=== PATIENT | female | born 1950 | race Caucasian/White ===

== ENCOUNTER → 2019-01-23 | Outpatient (CLI) | payer OTHER ==
--- NOTE | 2019-01-22 15:21 | PCVCIMAG ---
APPROVED REPORT Study performed: 01/22/2019 09:17:22 EXAM: Comprehensive 2D, Doppler, and color-flow Echocardiogram Patient Location: Echo lab Status: routine BSA: 1.96 HR: 70 bpmBP: 128/78 mmHg Rhythm: NSR Other Information Study Quality: Good Risk Factors: Cardiac Risk Factors: HTN, Hyperlipidemia Indications Pre-Op CAD 2D Dimensions IVSd: 8.90 (7-11mm)LVOT Diam: 20.00 (18-24mm) LVDd: 42.40 mm PWd: 9.44 (7-11mm)Ascending Ao: 29.18 (22-36mm) LVDs: 29.11 (25-40mm) Left Atrium: 32.44 (27-40mm) Aortic Root: 29.93 mm LV Single Plane 4CH: 63.97 % LV Single Plane 2CH: 67.77 % Biplane EF: 66.4 % Volumes Left Atrial Volume (Systole) Single Plane 4CH: 37.73 mLSingle Plane 2CH: 37.55 mL LA ESV Index: 21.00 mL/m2 Aortic Valve AoV Peak Ventura.: 1.31 m/s AO Peak Gr.: 6.91 mmHgLVOT Max P.12 mmHg LVOT Max V: 1.24 m/s CLARA Vmax: 2.82 cm2 AI Vmax: 4.06 m/s AI Pike: 1.31 m/s2 AI PHT: 896.42 ms Mitral Valve E/A Ratio: 0.8 MV Decel. Time: 180.11 ms MV E Max Ventura.: 1.01 m/s MV A Ventura.: 1.19 m/s MV PHT: 52.23 ms IVRT: 41.52 ms TDI E/Lateral E': 12.63E/Medial E': 14.43 Medial E' Ventura.: 0.07 m/s Lateral E' Ventura.: 0.08 m/s Pulmonary Valve PV Peak Ventura.: 0.96 m/sPV Peak Gr.: 3.70 mmHg Pulmonary Vein P Vein S: 0.65 m/sP Vein A: 0.33 m/s P Vein D: 0.53 m/sP Vein A Dur.: 107.3 msec P Vein S/D Ratio: 1.23 Tricuspid Valve TR Peak Ventura.: 2.59 m/s TR Peak Gr.: 26.76 mmHg Left Ventricle The left ventricle is normal size. There is normal LV segmental wall motion. There is normal left ventricular wall thickness. Left ventricular systolic function is normal. The left ventricular ejection fraction is within the normal range. LVEF is 60-65%. Mild diastolic dysfunction is present (impaired relaxation pattern). Right Ventricle The right ventricle is normal size. The right ventricular systolic function is normal. Atria The left atrium size is normal. The right atrium size is normal. Aortic Valve The Aortic valve is sclerotic. Mild aortic regurgitation. There is no aortic valvular stenosis. Mitral Valve The mitral valve is normal in structure. Mild mitral regurgitation. No evidence of mitral valve stenosis. Tricuspid Valve The tricuspid valve is normal in structure. Mild tricuspid regurgitation. TR jet measures 27 mmHg. Unable to assess PA pressure. Pulmonic Valve The pulmonary valve is normal in structure. There is no pulmonic valvular regurgitation. Great Vessels The aortic root is normal in size. IVC is not well visualized. Pericardium There is no pericardial effusion. <Conclusion> The left ventricle is normal size. LVEF is 60-65%. Mild diastolic dysfunction is present (impaired relaxation pattern). The right ventricle is normal size. The left atrium size is normal. The Aortic valve is sclerotic. Mild aortic regurgitation. Mild mitral regurgitation. Mild tricuspid regurgitation. TR jet measures 27 mmHg. Unable to assess PA pressure. The aortic root is normal in size. There is no pericardial effusion.
[~2019-01-23] MED LIST: REGADENOSON 0.4 MG/5 ML DISP.SYRIN. IV ONE
--- NOTE | 2019-01-23 16:09 | PCVCIMAG ---
APPROVED REPORT Imaging Protocol: Rest Tc-99m/Stress Tc-99m 1 day Study performed: 01/23/2019 13:50:48 Indication: CAD , Pre-Operative CV evaluation Patient Location: Out-Patient Stress Nurse: Nata Cruz RN, Melanie Baum RN [place] Tech:Evelyn Xavier [facility] Ht: 5 ft 5 in Wt: 195 lbs BSA: 1.96 m2 HR: 72 bpm BP: 154/85 mmHg BMI: 32.44 Medical History Medical History: HTN, Hyperlipidemia Medications: Albuterol, Amlodipine, ASA, Levothyroxine, Singulair, Crestor Allergies: Many - none relevant to this test Cardiac Risk Factors: Age Pretest Chest Pain Characteristics: No chest pain Exercise History: Indeterminate Physical Disabilities: Hips Resting Data Rest SPECT myocardial perfusion imaging was performed in supine position 45 minutes following the intravenous injection of 9.3 mCi of Tc-99m Sestamibi. Time of rest injection: 1310 Date: 01/23/2019 Administration Route: IV Administration Site: Right AC Pharmacologic Stress Pharmacologic stress test was performed by injecting Regadenoson 0.4 mg IV push over 10-15 seconds immediately followed by the intravenous injection of 34.2 mCi of Tc-99m Sestamibi. Time of stress injection: 34.2 Administration Route: IV Administration Site: Right AC Gated Stress SPECT was performed 45 minutes after stress injection. The images were gated to evaluate regional wall motion and calculate left ventricular ejection fraction. Stress Test Details Stress Test: Pharmacologic stress testing performed using 0.4 mg of regadenoson per 5 mL given IV over 10 seconds. 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 HRMax Heart Rate (APMHR): 152 bpm Resting HR: 72 bpmTarget HR (85% APMHR): 129 bpm Max HR Achieved: 93 bpm % of APMHR: 61 Recovery HR: 88 bpm BP Resting BP: 154/85 mmHg Max BP: 154/88 mmHg Recovery BP: 152/83 mmHg ECG Resting ECG: Normal Sinus Rhythm Stress ECG: Normal Sinus Rhythm ST Change: Non-ischemic Recovery ECG: Normal Sinus Rhythm Clinical Reason for Termination: Completed protocol Stress Symptoms: Abdominal discomfort, Headache, Lightheaded Exercise duration: 0 min 55 sec Symptoms resolved with caffeine. Study Quality Study: Good Study Data Post stress, the left ventricular ejection was 85%.. SSS: 2 SRS: 0 SDS: 2 TID = 1.03. Perfusion Normal left ventricular perfusion. Normal perfusion on both the stress and rest images. Wall Motion Normal left ventricular wall motion. Nuclear Conclusion ECG Findings: negative for ischemia Clinical Findings: non-diagnostic Nuclear Findings: negative for ischemia Exercise Capacity: not assessed Left Ventricular Function: normal This study is of low probability for inducible ischemia or prior infarct. Normal global and segmental LV systolic function.
== END | disposition home or self-care (01) ==
LOC: PCVCIMAG 12:47
PROVIDERS: ATTEND Internal Medicine Cardiovascular Disease
DX: Z01.810 Encounter for preprocedural cardiovascular examination (principal); I25.10 Atherosclerotic heart disease of native coronary artery without angina pectoris; I08.3 Combined rheumatic disorders of mitral, aortic and tricuspid valves; I10 Essential (primary) hypertension; E78.5 Hyperlipidemia, unspecified
CPT/HCPCS: 78452; 93017; 93306; A9500; J2785

== ENCOUNTER → 2019-04-21 | Outpatient (CLI) | payer OTHER | END | disposition home or self-care (01) | LOC: PCVCCLINIC 09:45 | PROVIDERS: ATTEND Nuclear Medicine Nuclear Cardiology | DX: I87.2 Venous insufficiency (chronic) (peripheral) (principal); I87.329 Chronic venous hypertension (idiopathic) with inflammation of unspecified lower extremity; I25.10 Atherosclerotic heart disease of native coronary artery without angina pectoris; I10 Essential (primary) hypertension; E78.00 Pure hypercholesterolemia, unspecified; G47.33 Obstructive sleep apnea (adult) (pediatric) | CPT/HCPCS: G0463 ==

== ENCOUNTER → 2019-09-23 | Outpatient (CLI) | payer OTHER ==
--- NOTE | 2019-09-23 16:10 | PCVCIMAG ---
EXAM: BILATERAL SUPERFICIAL VENOUS DUPLEX INDICATION: Leg pain and swelling. FINDINGS: Right leg: No thrombus in the common femoral, main femoral, or popliteal veins. These veins are compressible. Right Great Saphenous Vein: At the saphenofemoral junction the diameter is 7.4 mm, in the mid thigh it is 6.6 mm, and in the calf it is 5.3 mm. There is not significant venous insufficiency/reflux throughout. Venous insufficiency/reflux duration is 0 seconds. Right Small Saphenous Vein: At the saphenopopliteal junction the diameter is 5.0 mm, and in the calf it is 4.7 mm. There is not significant venous insufficiency/reflux throughout. Venous insufficiency/reflux duration is 0 seconds. There is not a cranial extension present. Left leg: No thrombus in the common femoral, main femoral, or popliteal veins. These veins are compressible. Left Great Saphenous Vein: Occlusion throughout the length of the left great saphenous vein saphenous vein consistent with satisfactory prior ablation procedure. Left Small Saphenous Vein: Occlusion throughout the length of the left small saphenous vein saphenous vein consistent with satisfactory prior ablation procedure. IMPRESSION: Right Great Saphenous Vein: No significant venous insufficiency/reflux is present as noted above. Right Small Saphenous Vein: No significant venous insufficiency/reflux is present as noted above. Left Great Saphenous Vein: Satisfactory post ablation change in the left great saphenous vein. Left Small Saphenous Vein: Satisfactory post ablation change in the left small saphenous vein. LOC:[place] [id number]
== END | disposition home or self-care (01) ==
LOC: PCVCIMAG 13:14
PROVIDERS: ATTEND Nuclear Medicine Nuclear Cardiology
DX: I87.2 Venous insufficiency (chronic) (peripheral) (principal)
CPT/HCPCS: 93970

== ENCOUNTER → 2019-10-13 | Outpatient (CLI) | payer OTHER | END | disposition home or self-care (01) | LOC: PCVCCLINIC 15:40 | PROVIDERS: ATTEND Internal Medicine Cardiovascular Disease | DX: I25.10 Atherosclerotic heart disease of native coronary artery without angina pectoris (principal); E78.00 Pure hypercholesterolemia, unspecified; I10 Essential (primary) hypertension; I87.2 Venous insufficiency (chronic) (peripheral); J44.9 Chronic obstructive pulmonary disease, unspecified; Z79.82 Long term (current) use of aspirin; Z79.899 Other long term (current) drug therapy; Z88.8 Allergy status to other drugs, medicaments and biological substances | CPT/HCPCS: 36415; 80061; 93005; G0463 ==